=== PATIENT | male | born 1960 | race Caucasian/White ===

== ENCOUNTER 2018-02-28 20:12 | Emergency (ER) | payer MEDICAID ==
[~2018-02-28] VITALS: Ht 167.6 cm; Wt 72.6 kg
[~2018-02-28 20:12] MED LIST: A/B OTIC15 ML AU; FLEXERIL10 MG PO; GLU500 PO; GLUCOSAMINE500 MG PO; SYN25 PO; ZES10 PO; ZOC10 PO
[2018-02-28 20:24] VITALS: Ht 167.6 cm; Wt 72.6 kg
[2018-02-28 23:17] VITALS: BP 132/99
== END 2018-02-28 23:17 | disposition home or self-care (01) ==
LOC: ED 20:12
DX: S43.401A Unspecified sprain of right shoulder joint, initial encounter (principal); X50.9XXA Other and unspecified overexertion or strenuous movements or postures, initial encounter; Y93.89 Activity, other specified; Y92.89 Other specified places as the place of occurrence of the external cause; Y99.8 Other external cause status
CPT/HCPCS: J1885

== ENCOUNTER 2020-04-12 15:46 | Emergency (ER) | payer MEDICAID ==
[~2020-04-12] VITALS: Ht 165.1 cm; Wt 72.6 kg
[2020-04-12 16:18] VITALS: Ht 165.1 cm; Wt 72.6 kg
[2020-04-12 17:37] LABS: BASOPHIL % 0.7 % (0-2); PLATELET COUNT 269 x10^3mcL (130-400); RED CELL DISTRIBUTION WIDTH 13.3 % (11.5-14.5)
[2020-04-12 17:52] LABS: CALCIUM 9.2 mg/dL (8.5-10.1); CARBON DIOXIDE 24.7 mmol/L (21-32); CHLORIDE SERUM 104 mmol/L (98-107); CREATININE SERUM 1.1 mg/dL (0.7-1.3); GFR1 > 60 mL/min; GLUCOSE SERUM 103 mg/dL (74-106); POTASSIUM SERUM 3.5 mmol/L (3.5-5.1); SODIUM SERUM 138 mmol/L (136-145)
[2020-04-12 17:56] LABS: ALBUMIN 4.2 g/dL (3.4-5.0); ALKALINE PHOSPHATASE 108 U/L (46-116); ALT/SGPT 49 U/L (16-63); AST/SGOT 27 U/L (15-37); BILIRUBIN TOTAL 0.39 mg/dL (0.20-1.00)
[2020-04-12 19:12] VITALS: BP 126/82
== END 2020-04-12 18:45 | disposition home or self-care (01) ==
LOC: ED 15:46
PROVIDERS: Emergency Medicine
DX: R42 Dizziness and giddiness (principal); R22.0 Localized swelling, mass and lump, head; R51 Headache; I10 Essential (primary) hypertension; E11.9 Type 2 diabetes mellitus without complications